=== PATIENT | female | born 1955 | race Two or more races ===

== ENCOUNTER 2018-08-15 15:52 | Emergency (ER) | payer SELFPAY ==
[~2018-08-15] VITALS: Ht 165.1 cm; Wt 70.0 kg
[2018-08-15] MEDS ORDERED: SODIUM CHLORIDE 0.9% 1,000 ML IV ONE (16:17)
[2018-08-15] MEDS ORDERED: KETOROLAC 30MG/ML VIAL IV STA (16:17)
[2018-08-15] MEDS ORDERED: ONDANSETRON HCL 4MG/2ML INJ IV STA (16:17)
[2018-08-15 16:33] VITALS: BP 119/68
[2018-08-15 17:01] LABS: BASOPHILS % 0.6 % (0.0-2.0); EOSINOPHILS % 0.5 % (0.0-5.0); HEMATOCRIT. 35.9 % (36.0-48.0); HEMOGLOBIN. 12.1 g/dL (12.0-16.0); LYMPHOCYTES % 34.3 % (20.0-50.0); MEAN CORPUSCULAR HEMOGLOBIN 32.6 pg (28.0-32.0); MEAN CORPUSCULAR VOLUME 96.9 fL (81.0-99.0); MEAN PLATELET VOLUME 7.4 fl (7.4-10.4); MONOCYTES % 8.7 % (2.0-8.0); NEUTROPHILS % 55.9 % (40.0-76.0); PLATELET 236 x1000/uL (130-400); RED BLOOD CELL COUNT 3.71 mill/uL (4.2-5.4); RED CELL DISTRIBUTION WIDTH 14.7 % (11.6-14.6)
[2018-08-15 17:05] LABS: CHLORIDE 109 mEq/L (98-107)
[2018-08-15] MEDS ORDERED: SUMATRIPTAN SUCCINATE 6MG/0.5ML VIAL SUBCUT ONE (18:30)
== END 2018-08-15 19:11 | disposition home or self-care (01) ==
LOC: ER 15:52
DX: R55 Syncope and collapse (principal); R51 Headache; I10 Essential (primary) hypertension; R53.1 Weakness; R42 Dizziness and giddiness; Z86.73 Personal history of transient ischemic attack (TIA), and cerebral infarction without residual deficits; Z88.5 Allergy status to narcotic agent; Z98.890 Other specified postprocedural states
CPT/HCPCS: 36415; 70450; 80053; 85025; 93005; 96361; 96374; 96375; 99284; J1885; J2405; J7030